=== PATIENT | male | born 1975 | race Caucasian/White ===

== ENCOUNTER 2019-03-14 21:48 | Inpatient (IN) | payer BC ==
[2019-03-14] MEDS ORDERED: Ondansetron ODT 4 MG TAB PO PRN (23:01)
--- NOTE | 2019-03-14 23:39 | PDOC.EVN ---
Event Note - Event Note Event Note: [id number] HP
[2019-03-15 00:41] VITALS: BMI 48.7
[2019-03-15] MEDS ORDERED: PROMETHAZINE DM PO PRN (04:20)
[2019-03-15] MEDS ORDERED: Phenergan/Codeine 10-6.25mg/5ml UDCUP PO PRN (04:37)
[2019-03-15 05:14] LABS: #Eosinphils 0.3 thou/uL (0.0-0.7); #Lymphocytes 1.9 thou/uL (1.20-3.40); #Neutrophils 9.3 thou/uL (1.40-6.50); %Basophils 0.3 % (0.0-1.0); %Eosinophils 2.2 % (0.0-10.0); %Lymphocytes 15.3 % (21.0-51.0); %Monocytes 8.3 % (0.0-10.0); %Neutrophils 73.9 % (42.0-75.0); Hemoglobin 9.8 g/dL (14.0-18.0); Mean Corpuscular HGB CONC 31.6 g/dL (32.0-36.0); Mean Corpuscular Hemoglobin 25.2 pg (27.0-31.0); Mean Corpuscular Volume 79.8 fL (78.0-98.0); Mean Platelet Volume 7.5 fL (7.4-10.4); Platelet Count 665 thou/uL (130-400); RBC Distribution Width 14.4 % (11.5-14.5); Red Blood Cell (RBC) Count 3.89 mill/uL (4.70-6.10); White Blood Cell (WBC) Count 12.5 thou/uL (4.8-10.8)
[2019-03-15 05:36] LABS: ALT (SGPT) 30 U/L (8-55); AST (SGOT) 57 U/L (5-34); Albumin 3.2 g/dL (3.5-5.0); Alkaline Phosphatase 167 U/L (40-110); Anion Gap 17 mmol/L (10-20); BUN (Urea Nitrogen) 27 mg/dL (8.9-20.6); Bilirubin, Total 0.5 mg/dL (0.2-1.2); Calc. Creatinine Clearance 208 mL/min (70-130); Calcium 9.3 mg/dL (7.8-10.44); Carbon Dioxide 21 mmol/L (22-29); Chloride 105 mmol/L (98-107); Estimated GFR-MDRD 82; Globulin 3.2 g/dL (2.4-3.5); Glucose 113 mg/dL (70-105); Potassium 3.8 mmol/L (3.5-5.1); Protein, Total 6.4 g/dL (6.0-8.3); Sodium 139 mmol/L (136-145)
[2019-03-15 07:31] LABS: INR-International Normal Ratio 1.2; PTT 30.1 SEC (22.9-36.1); Prothrombin Time 14.7 SEC (12.0-14.7)
[2019-03-15] MEDS ORDERED: Sodium Bicarbonate 2.5 MEQ/5 ML VIAL ONE (08:08)
--- NOTE | 2019-03-15 08:09 | HP ---
CHIEF COMPLAINT: Abdominal distension and shortness of breath. HISTORY OF PRESENT ILLNESS: Mr. Fung is a 43-year-old male with past medical history of ?hyperlipidemia, presented to [facility] Emergency Room and in [place], [place] with abdominal distention and shortness of breath for the last 2 weeks. Workup in the emergency room including imaging studies. The patient was found to have massive ascites, liver mass with carcinomatosis, portal vein thrombosis. Requested to transfer the patient to [facility] for GI consultation, accepted the transfer. The patient denies fevers, chills, vomiting. The patient denies any significant past medical history. No history of hepatitis. He used to drink in the past socially. The patient is being admitted to hospital for further management. PAST MEDICAL HISTORY: 1. Hyperlipidemia. 2. Cellulitis. PAST SURGICAL HISTORY: Four eye surgeries and four ear surgeries. FAMILY HISTORY: Reviewed and noncontributory. SOCIAL HISTORY: Denies smoking. Drinks alcohol socially. HOME MEDICATIONS: Please see home medication reconciliation form for updated medications. ALLERGIES: NO KNOWN ALLERGIES. REVIEW OF SYSTEMS: Review of 14 systems negative except what is mentioned in history of present illness. PHYSICAL EXAMINATION: GENERAL: The patient is awake, alert, in moderate distress. HEAD AND NECK: Normocephalic, atraumatic. Neck is supple. No JVD. CHEST: Fair bilateral air entry. HEART: S1, S2. Regular. Tachycardic. ABDOMEN: Markedly distended with shifting dullness and fluid thrill. NEUROLOGIC: Awake, alert, oriented x3. PSYCH: Normal mood. EXTREMITIES: Positive for edema. No clubbing or cyanosis. DIAGNOSTIC STUDIES: LABORATORY RESULTS: AST 63, ALT 30. INR is 1.1. Sodium is 141. IMAGING STUDIES: As mentioned above in the history of present illness. ASSESSMENT: 1. Ascites, massive. 2. Liver mass. 3. Carcinomatosis. 4. Portal vein thrombosis. PLAN: 1. Admit. 2. GI consulted for evaluation and further management. 3. Consult Interventional Radiology for ultrasound-guided paracentesis. 4. Reconcile home medications. 5. Deep venous thrombosis prophylaxis. SCD/early ambulation. 6. Expected length of stay, 2 midnights or more. Job ID: [id number]
[2019-03-15] MEDS ORDERED: FLU VACC QS2019-20(6MOS UP)/PF 60 MCG/0.5 ML SYRINGE IM ONE (09:00)
[2019-03-15] MEDS: Famotidine 20 MG TAB PO SCH ×2 (10:11→22:12)
[2019-03-15 11:35] LABS: CEA, Serum 105.58 ng/mL (< or = 5.0)
[2019-03-15 11:49] LABS: HBCM Index 0.06 S/CO (0-0.79); HBSAg Index 0.16 S/CO (0-0.99); Hep A IgM AB Non-Reactive (NonReactive); Hep A IgM S/CO 0.08 S/CO (0-0.79); Hep B Surf Ag Non-Reactive S/CO (NonReactive); Hep C IgG Ab Non-Reactive (NonReactive); Hep C Index 0.05 S/CO (0-0.79); Hepatitis B Core IgM Abs Non-Reactive (NonReactive)
--- NOTE | 2019-03-15 13:32 | ULT ---
PROCEDURE: ULTRASOUND GUIDED ABDOMINAL PARACENTESIS: INDICATION: History of hepatic mass. Ascites. Therapeutic and diagnostic paracentesis requested. FINDINGS: Five liters of dark ascitic fluid removed from the right lower quadrant. Postprocedure studies showe d moderate residual volume ascites. Since this is the patient's first paracentesis, the removal was terminated at 5 liters. PROCEDURE NOTE: Four-quadrant ultrasound shows large volume ascites. The right lower quadrant is chosen for puncture . The skin is prepped and draped in a sterile manner. Local anesthesia was administered with Lidoca ine. A tiny sandy was made in the skin with scalpel. A 5 Portuguese BCNX catheter with needle in placed was advanced into the ascites in the right lower quadrant under ultrasound guidance. The needle is r emoved as the catheter is advanced. The catheter is attached to suction drainage. Five liters of da rk ascitic fluid removed. There were no problems or complications. POS: FRANTZ
[2019-03-15 13:48] LABS: RBC Count-Automated (BF) 32539 /cumm; WBC/Nucleated-Auto (BF) 938 uL
[2019-03-15 13:50] LABS: BF Color Red; Body Fluid Source Paracentesis Fluid; Clarity Cloudy/Turbid (Clear); Tube # EDTA
[2019-03-15 14:20] LABS: BF Segmented Neutrophils 2 %; Cell Count Non Hematic 51 %; Lymphocytes 47 %
--- NOTE | 2019-03-15 16:16 | PDOC.HOSPP ---
- Subjective Encounter Date: 03/15/19 Encounter Time: 11:00 Subjective: had paracentesis this am breathing is better now no abd pain, says his tense abd before is better now - Objective Vital Signs & Weight: Vital Signs (12 hours) Temp Pulse Resp BP BP Pulse Ox 03/15/19 15:06 116 H 03/15/19 14:53 98.1 F 125 H 18 111/59 L 94 L 03/15/19 12:00 95 03/15/19 11:06 98.4 F 116 H 18 125/88 95 03/15/19 07:45 93 L 03/15/19 07:35 98.1 F 107 H 22 H 105/73 93 L Weight Weight 340 lb I&O: 03/14/19 03/15/19 03/16/19 06:59 06:59 06:59 Intake Total 100 Balance 100 Result Diagrams: 03/15/19 04:33 03/15/19 04:33 Hospitalist ROS - Medication Medications: Active Medications Generic Name Dose Route Start Last Admin Trade Name Freq PRN Reason Stop Dose Admin Famotidine 20 mg 03/15/19 09:00 03/15/19 10:11 Pepcid PO 20 mg BID MORTEZA Administration - Exam General Appearance: awake alert, ill appearing Eye: PERRL, anicteric sclera ENT: no oropharyngeal lesions, moist mucosa Neck: supple, no JVD Heart: RRR, no murmur Respiratory: no wheezes, no rales Gastrointestinal: soft, normal bowel sounds, no guarding, no rigidity, distended Extremities: no cyanosis, 1+ LE edema Neurological: cranial nerve grossly intact, no focal deficits Psychiatric: normal affect, A&O x 3 Hosp A/P (1) Ascites Code(s): R18.8 - OTHER ASCITES Status: Acute Qualifiers: Ascites type: malignant Qualified Code(s): R18.0 - Malignant ascites (2) Liver mass Code(s): R16.0 - HEPATOMEGALY, NOT ELSEWHERE CLASSIFIED Status: Acute (3) Chronic anemia Code(s): D64.9 - ANEMIA, UNSPECIFIED Status: Chronic (4) Portal vein thrombosis Code(s): I81 - PORTAL VEIN THROMBOSIS Status: Acute (5) Liver metastases Code(s): C78.7 - SECONDARY MALIG NEOPLASM OF LIVER AND INTRAHEPATIC BILE DUCT Status: Suspected (6) Morbid obesity with BMI of 45.0-49.9, adult Code(s): E66.01 - MORBID (SEVERE) OBESITY DUE TO EXCESS CALORIES; Z68.42 - BODY MASS INDEX (BMI) 45.0-49.9, ADULT Status: Chronic - Plan await cytology on ascitic fluid for egd/colonoscopy in am father has h/o pancreatic ca and mother has breast ca?, both are being treated at [facility] per sister at bedside has evaluated patient this am still has lot of ascites left in him prognosis guarded pt is single, no children
[2019-03-15] MEDS ORDERED: GoLYTELY 4,000 ml Bottle PO SCH (16:45)
--- NOTE | 2019-03-15 18:53 | CON ---
DATE OF CONSULTATION: 03/15/2019 REASON FOR CONSULTATION: Abnormal GI imaging showing a liver mass, acute onset ascites with possible peritoneal carcinomatosis. 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 He states that he was in his usual state of health until approximately 3 to 4 weeks ago when he began to have increased chronic cough that would occur daily and persist for the greater portion of the day. He was subsequently seen by his primary care physician and placed on antibiotic regimen for an upper respiratory infection including doxycycline for the next 10 days. At the completion of the antibiotic therapy, he started to notice that his abdomen began to be getting more distended and progressively worsened over the next 3 weeks. With the increase in his abdominal distention, it prompted him to seek healthcare assistance in the [facility], and there, he was diagnosed with significant new onset ascites and transferred to [facility] for further evaluation. In addition to the coughing and abdominal distention, he states that he has had increased generalized fatigue, subjective fevers, and night sweats over the last 3 to 4 weeks, although the night sweats and fever have improved significantly over the last 1 to 2 weeks. He currently denies any nausea, vomiting, fevers, chills, melena, hematochezia, hematemesis, dysphagia, odynophagia, lower extremity edema, or encephalopathy. He has never had an upper endoscopy or colonoscopy in the past. The patient was also adopted, so family history is unavailable. Of note, the patient underwent paracentesis earlier today with results pending at this time. The patient also noted a slight change in his bowel habits, where he was having approximately 1 solid bowel movement every 1 to 2 days that has increased in frequency, now having 1 solid bowel movement every day with no difficulty with defecation. REVIEW OF SYSTEMS: A 10-category review of systems was obtained with all responses negative except for the pertinent positives as listed in HPI. PAST MEDICAL HISTORY: As per HPI. PAST SURGICAL HISTORY: Multiple eye surgeries, multiple ear surgeries. FAMILY HISTORY: The patient was adopted, so the family history is unknown. SOCIAL HISTORY: Denies any tobacco or illicit drug use. Drinks approximately 2 to 3 drinks every 1 to 2 weeks. OUTPATIENT MEDICATIONS: Reviewed. ALLERGIES: NO KNOWN DRUG ALLERGIES. PHYSICAL EXAMINATION: VITAL SIGNS: Temperature 98.1, pulse 116, blood pressure 111/59, respiratory rate 18, saturating 94% on room air. GENERAL: The patient was initially lying on his side in bed, in no acute distress. Alert and oriented x4. HEENT: Normocephalic and atraumatic. NECK: Supple. No JVD or scleral icterus noted. CARDIOVASCULAR: Tachycardic rate but regular rhythm. No discernible murmurs, gallops, or rubs. RESPIRATORY: Clear to auscultation bilaterally with no discernible wheezes or rales, although somewhat diminished breath sounds in the bilateral lower lung bases. ABDOMEN: Normoactive bowel sounds. Soft, nontender to palpation, but significant abdominal distention that was not tense to palpation. EXTREMITIES: Trace to 1+ bilateral lower extremity edema extending to mid smith. No cyanosis or clubbing noted. LABORATORY DATA: CBC with a white blood cell count of 12.5, hemoglobin 9.8, hematocrit 31.1, platelets 665. INR 1.2. Chemistry with a sodium of 139, potassium 3.8, chloride 105, CO2 of 21, BUN 27, creatinine 1, glucose 113, AST 57, ALT 30, alkaline phosphatase 167, total bilirubin 0.5, albumin 3.2. IMAGING DATA: Per chart review, there was mention of a CT of the abdomen and pelvis that was obtained in the [facility]. It mentions the presence of a liver mass (no mention on size or location) and possible peritoneal carcinomatosis. There was also mention of a possible portal vein thrombosis as well. 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 Abnormal gastrointestinal imaging. The patient is presenting with acute onset of progressively worsening ascites that has been present for the last 3 to 4 weeks characterized as significant abdominal distention with obtaining approximately 5 L of fluid on paracentesis earlier today. On evaluation in the [facility] ER, he was noted to have a CT scan that showed a liver mass (unknown size and location) in addition to what appeared to be peritoneal carcinomatosis. At this time, it is unclear where this primary malignancy may be to contribute to the current imaging findings, and given his lack of family history (the patient was adopted), it is unclear what his risk stratification for gastrointestinal malignancies is as well. Current differential could include esophageal cancer, gastric cancer, colonic malignancy (more likely), carcinoid (although I would like to see carcinoid syndrome with liver metastasis), de mario hepatocellular carcinoma, cholangiocarcinoma, or possible lymphoma/leukemia. RECOMMENDATIONS: 1. Would place the patient on a clear liquid diet and n.p.o. at midnight in preparation for upper and lower endoscopy tomorrow. 2. Would proceed with both EGD and colonoscopy tomorrow for intraluminal evaluation and possible evaluation of a primary GI malignancy. 3. Would follow up on cytology from the ascitic fluid obtained today. 4. Would also follow up on the fluid analysis as it may further localize where the ascites coming from. 5. Would attempt to obtain the read/records from the CT scan obtained in [facility]. New onset ascites. The patient is presenting with a history of new onset ascites that has been progressively worsening over the last 3 to 4 weeks. On admission to the [facility] ER, he was noted to have a significant amount ascites with in addition to a liver mass and possible peritoneal carcinomatosis. At this time, the origin of his ascites could be multifold including possible liver etiology with portal vein thrombosis, peritoneal carcinomatosis with fluid leak from metastatic disease, possible renal or cardiac etiologies (less likely). RECOMMENDATIONS: 1. I will follow up on the paracentesis results for further evaluation and possible localization based on those labs. 2. The patient will probably need repeat paracentesis during the course of this hospitalization. 3. Could consider placing the patient on diuretic management, but would hold off for now until results of the paracentesis are known. 4. Would place the patient on a low-sodium diet during this hospitalization for worsening ascites and lower extremity edema. 5. We will continue to follow. Please call with any questions. Job ID: [id number]
[2019-03-16] MEDS: Famotidine 20 MG TAB PO SCH ×2 (10:26→20:32)
[2019-03-16] MEDS ORDERED: Ketamine 50 MG/ML (10ML VIAL) ONE (11:01)
[2019-03-16] MEDS ORDERED: Promethazine HCl 25 MG/ML VIAL IM PRN (12:14)
[2019-03-16] MEDS ORDERED: Ondansetron HCl/PF 4 MG/2 ML Vial IVP PRN (12:14)
[2019-03-16] MEDS ORDERED: Promethazine HCl 25 MG/ML VIAL SLOW IVP PRN (12:14)
--- NOTE | 2019-03-16 13:17 | PDOC.HOSPP ---
- Subjective Encounter Date: 03/16/19 Encounter Time: 09:00 Subjective: no abd pain now drank all of golytely for colonoscopy today, says has clear bm's now - Objective Vital Signs & Weight: Vital Signs (12 hours) Temp Pulse Resp BP Pulse Ox 03/16/19 08:50 97 03/16/19 07:38 97.7 F 98 18 106/72 97 03/16/19 04:12 98.4 F 94 18 106/69 97 Weight Weight 340 lb I&O: 03/15/19 03/16/19 03/17/19 06:59 06:59 06:59 Intake Total 100 Balance 100 Result Diagrams: 03/15/19 04:33 03/15/19 04:33 Hospitalist ROS - Medication Medications: Active Medications Generic Name Dose Route Start Last Admin Trade Name Freq PRN Reason Stop Dose Admin Famotidine 20 mg 03/15/19 09:00 03/16/19 10:26 Pepcid PO Not Given BID MORTEZA - Exam General Appearance: NAD, awake alert Eye: PERRL, anicteric sclera ENT: no oropharyngeal lesions, moist mucosa Neck: supple, no JVD Heart: RRR, no murmur Respiratory: no wheezes, no rales Gastrointestinal: soft, normal bowel sounds, distended Gastrointestinal - other findings: ascites+++ Extremities: no clubbing, 1+ LE edema Neurological: cranial nerve grossly intact, no focal deficits Psychiatric: normal affect, A&O x 3 Hosp A/P (1) Ascites Code(s): R18.8 - OTHER ASCITES Status: Acute Qualifiers: Ascites type: malignant Qualified Code(s): R18.0 - Malignant ascites (2) Liver mass Code(s): R16.0 - HEPATOMEGALY, NOT ELSEWHERE CLASSIFIED Status: Acute (3) Chronic anemia Code(s): D64.9 - ANEMIA, UNSPECIFIED Status: Chronic (4) Portal vein thrombosis Code(s): I81 - PORTAL VEIN THROMBOSIS Status: Acute (5) Liver metastases Code(s): C78.7 - SECONDARY MALIG NEOPLASM OF LIVER AND INTRAHEPATIC BILE DUCT Status: Suspected (6) Morbid obesity with BMI of 45.0-49.9, adult Code(s): E66.01 - MORBID (SEVERE) OBESITY DUE TO EXCESS CALORIES; Z68.42 - BODY MASS INDEX (BMI) 45.0-49.9, ADULT Status: Chronic - Plan await cytology on ascitic fluid for egd/colonoscopy today still has lot of ascites left in him prognosis guarded pt is single, no children will have repeat paracentesis prior to dc for comfort
--- NOTE | 2019-03-16 15:15 | OP ---
DATE OF PROCEDURE: 03/16/2019 RESOURCE CONSERVATION MANAGER SURGEON: None. PROCEDURES PERFORMED: 1. Esophagogastroduodenoscopy, diagnostic. 2. Colonoscopy with biopsies. INDICATION: 1. Peritoneal carcinomatosis, unknown primary source. 2. Multiple liver masses, unknown primary. MEDICATIONS: See Anesthesia record. FINDINGS: After discussion of the risks, benefits, and alternatives of the procedure, informed consent was obtained and witnessed. Pre-endoscopic cardiopulmonary examination was satisfactory. Time-out was performed before sedation was achieved. Sedation was achieved with Anesthesia assistance in the endoscopy unit. A Pentax adult upper endoscope was placed into the oropharynx and passed through the cricopharyngeus under direct visualization. The esophageal mucosa appeared normal throughout with a normal-appearing Z-line. There was no evidence of any esophageal varices. The endoscope was advanced into the stomach. Forward and retroflexed views of the entire gastric mucosa were obtained. The gastric mucosa appeared normal throughout. There was no evidence of any gastric varices. The endoscope was passed beyond the pylorus and into the first and second portions of the duodenum, which appeared normal. The upper endoscope was completely withdrawn and the patient was repositioned. Digital rectal exam was performed, which demonstrated external hemorrhoids. A Pentax adult colonoscope was inserted into the anus and passed forward in the usual fashion. In the right colon, there is a very large circumferential fungating ulcerated mass essentially filling up the entire right colon. The mass is quite long and is narrower at the proximal, so I was unable to advance beyond it to reach the cecum, but I do estimate that the mass involves the ascending colon as well as the cecum. There is extensive friability and ulceration and complex nodularity throughout this mass and it is very likely malignant. Multiple biopsies were obtained from the mass for histology. The colonoscope was then slowly withdrawn in a gradual and circumferential manner with careful examination of the entire remaining colonic mucosa. The quality of the prep was adequate. There was a smaller polyp measuring about 4 mm at 70 cm from the anal verge, but this was not removed on today's exam. The remainder of the colonic mucosa appeared normal. Retroflexion in the rectum demonstrates internal hemorrhoids. The colonoscope was completely withdrawn and the patient allowed to recover. The patient tolerated the procedure well. There were no immediate postprocedure complications. IMPRESSION: 1. Normal esophagogastroduodenoscopy. 2. Large circumferential near-obstructing mass essentially filling the right colon, likely malignant. Ulcerated and friable. Multiple biopsies obtained for histology. 3. Small colon polyp at 70 cm, not removed on today's exam. 4. Internal and external hemorrhoids. RECOMMENDATIONS: 1. Follow up pathology results on the right colon mass biopsies. 2. Oncology consultation. 3. Low-fiber low-residue diet. 4. Supportive care. Please call back if needed. Job ID: [id number]
[2019-03-17] MEDS: Famotidine 20 MG TAB PO SCH ×2 (08:49→20:39)
[2019-03-17] MEDS ORDERED: Sodium Bicarbonate 2.5 MEQ/5 ML VIAL ONE (14:06)
[2019-03-17] MEDS: Albumin 25% 25 GM/100 ML BOT IVPB SCH ×2 (15:35→20:39)
--- NOTE | 2019-03-17 16:10 | PDOC.HOSPP ---
- Subjective Encounter Date: 03/17/19 Encounter Time: 09:00 Subjective: no sob, wants some more fluid removed from his abdomen brother at bedside - Objective Vital Signs & Weight: Vital Signs (12 hours) Temp Pulse Resp BP BP Pulse Ox 03/17/19 15:26 98.0 F 97 18 110/76 97 03/17/19 12:10 98.3 F 97 16 111/79 96 03/17/19 08:45 97 03/17/19 07:45 98.5 F 95 14 106/71 97 03/17/19 04:10 97.8 F 101 H 16 105/69 94 L Weight Weight 340 lb I&O: 03/16/19 03/17/19 03/18/19 06:59 06:59 06:59 Intake Total 100 720 Balance 100 720 Result Diagrams: 03/15/19 04:33 03/15/19 04:33 Hospitalist ROS - Medication Medications: Active Medications Generic Name Dose Route Start Last Admin Trade Name Freq PRN Reason Stop Dose Admin Famotidine 20 mg 03/15/19 09:00 03/17/19 08:49 Pepcid PO 20 mg BID MORTEZA Administration - Exam General Appearance: awake alert, ill appearing Eye: PERRL, anicteric sclera ENT: no oropharyngeal lesions, moist mucosa Neck: supple, no JVD Heart: RRR, no murmur Respiratory: no wheezes, no rales Gastrointestinal: soft, normal bowel sounds, distended Gastrointestinal - other findings: massive ascites+++ Extremities: no cyanosis, no edema Neurological: cranial nerve grossly intact, no focal deficits Psychiatric: normal affect, A&O x 3 Hosp A/P (1) Adenocarcinoma of colon metastatic to liver Code(s): C18.9 - MALIGNANT NEOPLASM OF COLON, UNSPECIFIED; C78.7 - SECONDARY MALIG NEOPLASM OF LIVER AND INTRAHEPATIC BILE DUCT Status: Acute (2) Ascites Code(s): R18.8 - OTHER ASCITES Status: Acute Qualifiers: Ascites type: malignant Qualified Code(s): R18.0 - Malignant ascites (3) Chronic anemia Code(s): D64.9 - ANEMIA, UNSPECIFIED Status: Chronic (4) Portal vein thrombosis Code(s): I81 - PORTAL VEIN THROMBOSIS Status: Acute (5) Liver metastases Code(s): C78.7 - SECONDARY MALIG NEOPLASM OF LIVER AND INTRAHEPATIC BILE DUCT Status: Acute (6) Morbid obesity with BMI of 45.0-49.9, adult Code(s): E66.01 - MORBID (SEVERE) OBESITY DUE TO EXCESS CALORIES; Z68.42 - BODY MASS INDEX (BMI) 45.0-49.9, ADULT Status: Chronic - Plan cytology on ascitic fluid shows adenocarcinoma colon right colon biopsy confirms above 2nd paracentesis today for comfort, alb infusions for pressure support. prognosis guarded pt is single, no children patient and brother confirm that they have a standby onc in [place] who is ready to see them as soon as he is dc'd from here dc plan in am after 4 doses of alb infusion
[2019-03-18] MEDS ORDERED: Acetaminophen 325 MG TAB PO PRN (00:21)
[2019-03-18] MEDS: Albumin 25% 25 GM/100 ML BOT IVPB SCH ×2 (03:46→08:54)
--- NOTE | 2019-03-18 08:08 | ULT ---
PROCEDURE: ULTRASOUND GUIDED ABDOMINAL PARACENTESIS: INDICATION: Recurrent ascites. Cirrhosis. FINDINGS: 5100 cc of dark bloody-tinged ascitic fluid removed from the right lower quadrant. Post procedure ul trasound showed moderate volume residual ascites. TECHNIQUE: A 4-quadrant ultrasound showed large volume ascites. Right lower quadrant was chosen for puncture. The overlying skin was prepped and draped in a sterile manner. Local anesthesia was administered wit h Lidocaine. A tiny skin sandy was made with a scalpel. A 5 Tajik SaleStream catheter with needle in plac e was introduced through the slit through the right lower quadrant under ultrasound guidance. The ca theter was attached to suction drainage. 5100 cc of dark blood-tinged fluid removed. There were no problems or complications. POS: OFF
[2019-03-18] MEDS: Famotidine 20 MG TAB PO SCH (08:54)
[2019-03-18 11:40] VITALS: BP 90/61; TEMP 97.4
--- NOTE | 2019-03-18 20:03 | DIS ---
DATE OF ADMISSION: 03/14/2019 DATE OF DISCHARGE: 03/18/2019 DISCHARGE DISPOSITION: Home. PRIMARY DISCHARGE DIAGNOSES: 1. Adenocarcinoma of colon with multiple metastases including peritoneum and liver, status post paracentesis x2. 2. Anemia, likely due to colon cancer. 3. Portal vein thrombosis. 4. Morbid obesity. PROCEDURES DONE DURING HOSPITALIZATION: The patient has had initial paracentesis on admission with removal of 5 L of dark ascitic fluid. Histopathology of ascitic fluid revealed metastatic adenocarcinoma suggestive of gastrointestinal origin. The tumor cell clusters were diffusely positive for MOC-31, , and CDX2. They were also negative for calretinin, podoplanin, and TTF-1. He has had upper endoscopy and colonoscopy done on 03/16/[address] Adiel Alex. Upper endoscopy was normal. There was a large circumferential near obstructing mass essentially filling the right colon, likely malignant. It was ulcerated and friable. Multiple biopsies were obtained. There was a small colon polyp at 70 cm, which was not removed on the current exam. There were internal and external hemorrhoids seen. Histopathology of the right colon mass showed adenocarcinoma with mucinous and signet ring cell features. [place] [facility] testing showed no loss of expression with 90% intensity, moderate for MLH1, MSH2, MSH6, and PMS2. The final interpretation of this genomic study was MLH2, MSH2, MSH6, and PMS2, were all expressed by immunohistochemistry. There was no evidence of mismatch repair deficiency on the specimen that was sent for genomics. He has had a 2nd paracentesis done on 03/17/2019 with removal of 5100 mL of dark blood-tinged fluid by Interventional Radiology. DISCHARGE MEDICATION: Ferrous sulfate 325 mg p.o. daily. INPATIENT CONSULT: Dr. Emil Dorado/Dr. Adiel Alex for Gastroenterology. DISCHARGE PLAN: The patient will follow up at [facility] per family's wishes. BRIEF COURSE DURING HOSPITALIZATION: The patient initially got admitted on the with complaints of progressive abdominal distention and shortness of breath. He had gone to [facility] in [place], where initial CAT scans were done, which revealed peritoneal carcinomatosis with portal vein thrombosis and liver met along with massive ascites. Please note, this was done at [facility] ER. On arrival here, the patient has had paracentesis done with removal of 5 L of fluid. This cytology on the fluid came back positive for adenocarcinoma of gastrointestinal origin. He has had GI consultation with Dr. Emil Dorado. He was scheduled for EGD, colonoscopy where he was found to have had near obstructive mass in the right colon. This was biopsied, which has come back positive for adenocarcinoma. Detailed description of the histopathology and genomic studies is dictated above. The patient and family would like to follow up at [facility]. They have a prior relationship with the oncologist there, where both his parents were treated for cancer. In view of this, no oncology consultation was requested here. He will be shortly discharged home. A total of 10 L of ascitic fluid was removed, and the patient is comfortable breathing and ambulating at present. Please note, I have seen and examined the patient on the day of discharge. Job ID: [id number]
== END 2019-03-18 14:07 | disposition home or self-care (01) | DRG 374 ==
LOC: ERS 21:48 → SURG B 22:36
PROVIDERS: ADMIT Internal Medicine; ATTEND Internal Medicine
PROC: 0W9G3ZZ Drainage of Peritoneal Cavity, Percutaneous Approach (ICD-10-PCS; principal; 2019-03-15)
PROC: 0DJ08ZZ Inspection of Upper Intestinal Tract, Via Natural or Artificial Opening Endoscopic (ICD-10-PCS; 2019-03-16)
PROC: 0DBH8ZX Excision of Cecum, Via Natural or Artificial Opening Endoscopic, Diagnostic (ICD-10-PCS; 2019-03-16)
PROC: 0W9G30Z Drainage of Peritoneal Cavity with Drainage Device, Percutaneous Approach (ICD-10-PCS; 2019-03-18)
DX: C18.9 Malignant neoplasm of colon, unspecified (principal); I81 Portal vein thrombosis; R18.0 Malignant ascites; C78.7 Secondary malignant neoplasm of liver and intrahepatic bile duct; Z68.42 Body mass index [BMI] 45.0-49.9, adult; C78.6 Secondary malignant neoplasm of retroperitoneum and peritoneum; E66.01 Morbid (severe) obesity due to excess calories; D63.0 Anemia in neoplastic disease; E78.5 Hyperlipidemia, unspecified; K64.4 Residual hemorrhoidal skin tags; K64.8 Other hemorrhoids; K63.5 Polyp of colon; K74.60 Unspecified cirrhosis of liver; Z98.890 Other specified postprocedural states
CPT/HCPCS: 36415; 49083; 80053; 80074; 82042; 82105; 82378; 83615; 84157; 85025; 85060; 85610; 85730; 87070; 87205; 88112; 88305; 88341; 88342; 89051; P9047

== ENCOUNTER 2019-03-23 12:49 | Observation (INO) | payer BC ==
[~2019-03-23 12:49] MED LIST: ISOVUE-370 76%-LOCM 1 ML ONE
[2019-03-23 14:39] LABS: #Basophils 0.1 thou/uL (0.0-0.2); #Eosinphils 0.2 thou/uL (0.0-0.7); #Lymphocytes 1.7 thou/uL (1.20-3.40); #Monocytes 1.5 thou/uL (0.11-0.59); #Neutrophils 13.2 thou/uL (1.40-6.50); %Basophils 0.4 % (0.0-1.0); %Neutrophils 79.6 % (42.0-75.0); Mean Corpuscular HGB CONC 30.6 g/dL (32.0-36.0); Mean Corpuscular Hemoglobin 25.3 pg (27.0-31.0); Mean Corpuscular Volume 82.7 fL (78.0-98.0); Mean Platelet Volume 7.4 fL (7.4-10.4); Platelet Count 825 thou/uL (130-400); RBC Distribution Width 14.6 % (11.5-14.5); Red Blood Cell (RBC) Count 4.33 mill/uL (4.70-6.10); White Blood Cell (WBC) Count 16.6 thou/uL (4.8-10.8)
[2019-03-23 14:46] LABS: INR-International Normal Ratio 1.1; PTT 32.5 SEC (22.9-36.1)
[2019-03-23 15:01] LABS: ALT (SGPT) 32 U/L (8-55); AST (SGOT) 75 U/L (5-34); Albumin 3.4 g/dL (3.5-5.0); Alkaline Phosphatase 294 U/L (40-110); Anion Gap 19 mmol/L (10-20); BUN (Urea Nitrogen) 26 mg/dL (8.9-20.6); Bilirubin, Total 0.6 mg/dL (0.2-1.2); CK (CPK) 43 U/L (30-200); Calc. Creatinine Clearance 0 mL/min (70-130); Calcium 9.2 mg/dL (7.8-10.44); Carbon Dioxide 23 mmol/L (22-29); Chloride 97 mmol/L (98-107); Estimated GFR-MDRD 62; Globulin 3.5 g/dL (2.4-3.5); Glucose 131 mg/dL (70-105); Lipase 44 U/L (8-78); Potassium 4.8 mmol/L (3.5-5.1); Protein, Total 6.9 g/dL (6.0-8.3); Sodium 134 mmol/L (136-145)
[2019-03-23 16:01] LABS: Bilirubin Moderate (Negative); Blood, Urine Negative (Negative); Glucose, Urine (Dipstick) Negative (Negative); Leukocyte Negative (Negative); Nitrite Negative (Negative); Protein, Urine (Dipstick) 30 mg/dL (Neg-Trace); Urobilinogen 0.2 mg/dL (Less than 2)
[2019-03-23 16:07] LABS: Clarity Clear (Clear)
[2019-03-23 16:10] LABS: RBC/HPF 0-3 HPF (0-3); Squamous Epithelial 0-3 HPF (0-3)
--- NOTE | 2019-03-23 16:23 | RAD ---
EXAM: Chest PA and lateral: HISTORY: Ascites COMPARISON: 04/19/2004 FINDINGS: Linear stranding in both lung bases suggest mild atelectasis. No evidence of effusion or infiltrate. Heart and mediastinum unremarkable. Vasculature normal. Heart and mediastinum appear unremarkable. Osseous structures are unremarkable. IMPRESSION: Evidence of mild basilar atelectasis. Chest otherwise unremarkable.
[2019-03-23 16:24] LABS: Bacteria/HPF None Seen HPF (None Seen)
--- NOTE | 2019-03-23 16:41 | CT ---
CT abdomen and pelvis with IV contrast. Oral contrast was not administered. INDICATIONS: Abdominal pain. Worsening ascites. Recent diagnosis of colon cancer. COMPARISON: None FINDINGS: Lung bases are clear There is a 10 cm diameter area of abnormal low attenuation in the mid right lobe liver consistent wit h metastatic lesion. There are other smaller lesions seen throughout the liver. Spleen unremarkable. There is a 6 cm soft tissue mass in the mid abdomen which is located just anterior to the body of the pancreas. This mildly compresses the body the pancreas. It could potential arise from the pancreas but appears to produce mass effect on the body the pancreas as seen on sagittal view. Adenopathy is s uspected although pancreatic mass not excluded. Low-density mass in the jania hepatis is most consistent with confluent necrotic adenopathy measuring up to 7 cm AP dimension. Stomach and duodenum appear unremarkable. Adrenal glands appear normal. Kidneys appear unremarkable. Collecting structures and urinary bladder appear unremarkable. Small bowel loops are normal caliber and exhibit normal fold pattern. Appendix not identified. Colon is nondistended and poorly evaluated. There is suggestion of a masslik e density in the cecum but this cannot be adequately evaluated. Moderate to large volume ascites throughout abdomen and pelvis. Aorta is normal caliber. There is evidence of numerous lymph nodes in the right mesentery which are difficult to delineate. Pelvic structures appear unremarkable. Subcutaneous tissues, abdominal wall, and muscular structures appear unremarkable. Osseous structures appear unremarkable. IMPRESSION: 1. Low-density lesions in the liver consistent with metastasis. The largest measures up to 10 cm. 2. Moderate to large volume ascites 3. Mass density in the mid abdomen probably represents hepatogastric adenopathy. This does compress t he body of the pancreas. Jania hepatis adenopathy and mesenteric adenopathy in the right abdomen noted. 4. Colon is not well evaluated. Masslike density in the region of the cecum is poorly characterized. This measures 8 to 9 cm AP dimension.
[2019-03-23 22:07] VITALS: BMI 47.5
[2019-03-23] MEDS ORDERED: Ondansetron PF 4 MG/2 ML Vial IVP PRN ×2 (22:07→22:08)
[2019-03-23] MEDS ORDERED: Ondansetron ODT 4 MG TAB SL PRN (22:07)
[2019-03-23] MEDS ORDERED: Acetaminophen 325 MG TAB PO PRN ×2 (22:07→22:08)
[2019-03-23] MEDS ORDERED: Acetaminophen 650 MG Suppository PR PRN (22:08)
[2019-03-23] MEDS ORDERED: Ondansetron ODT 4 MG TAB PO PRN (22:08)
--- NOTE | 2019-03-24 01:48 | HP ---
PRIMARY CARE PHYSICIAN: Silvia Haq MD CHIEF COMPLAINT: Increasing abdominal girth and shortness of breath. HISTORY OF PRESENT ILLNESS: Mr. Fung is a 43-year-old gentleman with a recent diagnosis of metastatic colon cancer, who was recently hospitalized on March 14, 2019 until March 18, 2019, during which he underwent investigations that found a large near obstructing mass involving the right colon. He had presented with ascites and underwent paracentesis with removal of 5 L of dark ascitic fluid. The patient was found to have multiple metastases involving the peritoneum and liver. He underwent a 2nd paracentesis on 03/17/2019, with removal of 5 L at that time as well. The patient returns due to recurring ascites. He has gained approximately 5 pounds in the last few days and has started to feel pressure in his abdomen and some slight shortness of breath with exertion. He states the discomfort is minimal, but he does feel his abdomen has become significantly distended, especially in the last couple of days. He has an appointment to be seen at [place] by Dr. Pfeiffer on 03/31/2019. REVIEW OF SYSTEMS: The patient states he has otherwise felt well and without any other complaints. Denies having any fevers, chills, or sweats. Denies having any nausea or vomiting. He continues to tolerate oral intake and has a good appetite, but does have to take small and frequent meals. Denies having any significant abdominal pain. He continues to move his bowels as normal. Denies having any blood per rectum or melenic stools. Denies any diarrhea or constipation. Has not had any urinary symptoms. Denies headaches or dizziness. All other review of systems are negative. PAST MEDICAL HISTORY: 1. Hyperlipidemia. 2. Cellulitis. 3. Obesity. 4. Newly diagnosed metastatic colon cancer. 5. Recurring ascites secondary to underlying malignancy. 6. Anemia due to cancer. 7. Portal vein thrombosis. PAST SURGICAL HISTORY: He has had 4 eye surgeries in the past and 4 ear surgeries. FAMILY HISTORY: His father was treated at [facility] for colon cancer. SOCIAL HISTORY: He denies any tobacco use. Reports drinking alcohol socially. Denies any drug use. ALLERGIES: NO KNOWN DRUG ALLERGIES. CURRENT MEDICATIONS: None. PHYSICAL EXAMINATION: GENERAL: The patient appears well developed, well nourished, is in no acute distress. VITAL SIGNS: Temperature 98.4, pulse 71, blood pressure 110/70, respirations 20, O2 saturation 94% on room air. HEENT: Normocephalic and atraumatic. Pupils are equal, round, and reactive to light. Sclerae icterus. Oropharynx is clear. NECK: Supple. LUNGS: Clear to auscultation bilaterally without any wheezes, rales, or rhonchi. CARDIAC: Regular rate and rhythm without audible murmurs, rubs, or gallops. ABDOMEN: Tense distention with no significant tenderness on palpation. No palpable masses. The patient with notably increased abdominal girth. EXTREMITIES: Trace edema. No calf tenderness. NEUROLOGIC: Alert and oriented x3. SKIN: Without rash or jaundice. LABORATORY DATA: Notable for white cell count of 16.6, hemoglobin 11, hematocrit 35.8, platelets 825, neutrophils 79.6. PT 14, INR 1.1, PTT 32.5. Sodium 134, potassium 4.8, anion gap 19, BUN 26, creatinine 1.27, GFR 62, glucose 131. LFTs notable for an AST of 75, otherwise unremarkable. Lipase normal at 44. Albumin 3.4, alkaline phosphatase 294. Urinalysis is notable for 30 of protein, 15 ketones, moderate bilirubin, negative for leukocyte esterase and nitrites. White blood cells more than 20, greater than 50 hyaline casts, otherwise unremarkable. No bacteria seen. IMAGING DATA: Chest x-ray done 03/23/2019. Showed evidence of mild basilar atelectasis, otherwise unremarkable. CT abdomen and pelvis done 03/23/2019, notable for low-density liver lesions consistent with known history of metastasis. Largest apparently measures up to 10 cm. He does have [id number] volume of ascites and mass density in the mid abdomen, felt to represent hepatogastric adenopathy that appears to be compressing the body of the pancreas. There was brock hepatis adenopathy and mesenteric adenopathy in the right abdomen. Masslike density noted in the region of the cecum measuring 8-9 cm in AP dimension. IMPRESSION AND PLAN: Mr. Fung is a very pleasant 43-year-old gentleman with a known family history of colon cancer, who himself has recently been diagnosed with metastatic colon cancer to the liver and peritoneum, scheduled to undergo initial evaluation at [facility] next 03/31/2019. He initially presented with ascites requiring paracentesis with a total removal of 10 L on 1 week ago. The patient now presents for management of the following. 1. Recurrent ascites. Associated with underlying malignancy. He has become symptomatic with increasing shortness of breath on exertion and when lying flat, mild discomfort without any severe pain at present. He has continued to accumulate fluid quickly and has gained 3 pounds in the last day. Consultation has placed to Gastroenterology with plans for patient to undergo paracentesis. We will place patient n.p.o. at midnight. 2. Leukocytosis. The patient with an elevated white count of 16. He is not on any medications and not on any steroids . He has no signs or symptoms of infection. Chest x-ray showed bibasilar atelectasis, otherwise unremarkable. We will obtain a UA and urine culture. Lactic acid added on to his labs. 3. Tachycardia. Possibly associated with underlying malignancy and slight clinical dehydration. The renal function appears overall stable with a creatinine of 1.27. His GFR is 62 compared to 82 last week. We will hold on any IV fluids. The patient is tolerating oral intake. 4. Gastrointestinal prophylaxis. We will initiate famotidine. 5. Deep venous thrombosis prophylaxis. None at this present time. The patient is ambulatory. 6. Code status full. His surrogate decision maker is his brother, Wagner Fung. The patient's case was discussed with Dr. Baltazar, who agrees with plan of care as described above. Job ID: [id number]
[2019-03-24 07:28] LABS: #Eosinphils 0.2 thou/uL (0.0-0.7); #Lymphocytes 1.5 thou/uL (1.20-3.40); #Monocytes 1.3 thou/uL (0.11-0.59); #Neutrophils 11.5 thou/uL (1.40-6.50); %Basophils 0.3 % (0.0-1.0); %Eosinophils 1.1 % (0.0-10.0); %Lymphocytes 10.6 % (21.0-51.0); %Monocytes 9.1 % (0.0-10.0); %Neutrophils 78.9 % (42.0-75.0); Hemoglobin 10.2 g/dL (14.0-18.0); Mean Corpuscular HGB CONC 30.9 g/dL (32.0-36.0); Mean Corpuscular Hemoglobin 25.2 pg (27.0-31.0); Mean Corpuscular Volume 81.7 fL (78.0-98.0); Mean Platelet Volume 7.4 fL (7.4-10.4); Platelet Count 779 thou/uL (130-400); RBC Distribution Width 14.5 % (11.5-14.5); Red Blood Cell (RBC) Count 4.03 mill/uL (4.70-6.10); White Blood Cell (WBC) Count 14.5 thou/uL (4.8-10.8)
[2019-03-24 07:53] LABS: Anion Gap 20 mmol/L (10-20); BUN (Urea Nitrogen) 18 mg/dL (8.9-20.6); Calc. Creatinine Clearance 173 mL/min (70-130); Calcium 9.1 mg/dL (7.8-10.44); Carbon Dioxide 22 mmol/L (22-29); Chloride 98 mmol/L (98-107); Estimated GFR-MDRD 67; Glucose 111 mg/dL (70-105); Potassium 5.2 mmol/L (3.5-5.1); Sodium 135 mmol/L (136-145)
[2019-03-24] MEDS ORDERED: Famotidine/PF 20 mg/2ml Vial SLOW IVP SCH (09:00)
[2019-03-24] MEDS ORDERED: Sodium Bicarbonate 2.5 MEQ/5 ML VIAL ONE (13:16)
--- NOTE | 2019-03-24 15:05 | ULT ---
Ultrasound-guided paracentesis: HISTORY: Symptomatic ascites FINDINGS: Informed consent obtained prior to the procedure. Preprocedural imaging demonstrated signif icant ascites throughout the abdomen and pelvis. Right lower quadrant prepped and draped in normal sterile fashion and anesthetized with 1% buffered lidocaine. With direct sonographic guidance, 5 Japanese Yueh catheter is advanced into the ascites and removal of the stylet yielded yellow fluid. 8 L were removed. The patient tolerated the procedure well. No postprocedural complications. IMPRESSION: Successful ultrasound-guided paracentesis yielding 8 L of yellow ascites.
[2019-03-24] MEDS: Albumin 25% 25 GM/100 ML BOT IVPB SCH ×2 (16:32→17:36)
[2019-03-24 17:43] VITALS: BP 125/66; TEMP 98
[2019-03-24] MEDS ORDERED: FLU VACC QS2019-20(6MOS UP)/PF 60 MCG/0.5 ML SYRINGE IM ONE (21:00)
--- NOTE | 2019-03-24 21:00 | CON ---
DATE OF CONSULTATION: 03/24/2019 REASON FOR CONSULTATION: Abdominal distention. HISTORY OF PRESENT ILLNESS: Mr. Fung is a 43-year-old man, who was recently diagnosed with metastatic colon cancer to the liver. He does not have any colonic obstruction, but is bothered by recurrent malignant ascites. He has had paracentesis with recent admission about 10 days ago, which showed adenocarcinoma on cytology. Since discharge, he has had slow recurrence of ascites causing abdominal distention. He has to sleep on his sides and does get somewhat short of breath. He denies having any severe localizing pain. There is no peripheral edema. The patient has an upcoming appointment at [facility] next week on 03/31/2019. The patient just had 8 L of fluid removed by paracentesis earlier this morning. Currently, he feels much better. PAST MEDICAL HISTORY: 1. Hyperlipidemia. 2. Obesity. 3. Newly diagnosed metastatic colon cancer to liver with malignant ascites. SOCIAL HISTORY: The patient has infrequent alcohol consumption. No tobacco usage. FAMILY HISTORY: Colon cancer in his father. ALLERGIES: NONE. MEDICATIONS: None. PHYSICAL EXAMINATION: VITAL SIGNS: Temperature is 98.0, blood pressure 125/66, pulse of 112. GENERAL: He is alert, in no distress. HEENT: Shows anicteric sclerae. Oropharynx clear. CARDIOVASCULAR: Shows normal S1 and S2. Regular rate and rhythm. CHEST: Shows breath sounds. ABDOMEN: Protuberant, but not taut. He has active bowel sounds. EXTREMITIES: Show trace pedal edema. LABORATORY DATA: WBCs 14.5, hemoglobin 10.2, platelet count of 779. Electrolytes within normal range. Creatinine 1.19. ASSESSMENT: 1. Recurrent malignant ascites causing shortness of breath, status post 8 L paracentesis with significant clinical improvement. 2. Newly diagnosed colon cancer with liver metastasis. RECOMMENDATION: 1. Nothing is planned or needed from GI standpoint at this point. 2. The patient has an outpatient paracentesis planned 2 days prior to his [facility] visit. 3. The patient can be discharged home from my standpoint. Job ID: [id number]
--- NOTE | 2019-03-25 02:24 | DIS ---
DATE OF ADMISSION: 03/23/2019 DATE OF DISCHARGE: 03/24/2019 PRIMARY CARE PROVIDER: Dr. Liu Bui. DISCHARGE DIAGNOSIS: Ascites. CONDITION OF PATIENT ON THE DAY OF DISCHARGE: Stable. I assessed Mr. Fung on the day of discharge. He denies any chest pain or shortness of breath. Vital signs are stable. S1 and S2 are heard, regular. Lungs are clear to auscultation bilaterally. POSTDISCHARGE FOLLOWUP: The patient is advised to follow up with primary care provider in 1 week's time. CONSULTATIONS DURING THIS HOSPITALIZATION: Gastroenterology, Dr. Melton. HOSPITAL COURSE: Mr. Fung is a pleasant 43-year-old gentleman, who was admitted to [facility] for recurrent ascites, malignant. He underwent paracentesis through Interventional Radiology Department. 8 L of yellow ascitic fluid was removed. At the time of this dictation, he has been ordered 2 units of 25% albumin. He will be discharged home following albumin infusion. Many thanks for allowing me to participate in your patient's care. Please feel free to contact me with any questions or concerns. DISCHARGE DESTINATION: Home. Job ID: [id number]
== END 2019-03-24 18:55 | disposition home or self-care (01) ==
LOC: ERS 12:49 → 2SW 22:01
PROVIDERS: ADMIT Internal Medicine; ATTEND Internal Medicine
PROC: 0W9G3ZZ Drainage of Peritoneal Cavity, Percutaneous Approach (ICD-10-PCS; principal; 2019-03-24)
DX: C18.9 Malignant neoplasm of colon, unspecified (principal); C78.7 Secondary malignant neoplasm of liver and intrahepatic bile duct; C78.6 Secondary malignant neoplasm of retroperitoneum and peritoneum; R18.0 Malignant ascites; D63.8 Anemia in other chronic diseases classified elsewhere; D72.829 Elevated white blood cell count, unspecified; E78.5 Hyperlipidemia, unspecified; F41.9 Anxiety disorder, unspecified; G47.30 Sleep apnea, unspecified; E66.9 Obesity, unspecified; Z68.42 Body mass index [BMI] 45.0-49.9, adult
CPT/HCPCS: 36415; 49083; 71046; 74177; 80048; 80053; 81003; 81015; 82150; 82550; 83690; 85025; 85610; 85730; 96360; 96361; 96365; 96375; G0378; P9047; Q9966; S0028

== ENCOUNTER 2019-03-29 10:09 | Day surgery (SDC) | payer BC ==
[2019-03-29] MEDS ORDERED: Sodium Bicarbonate 2.5 MEQ/5 ML VIAL ONE (10:51)
[2019-03-29] MEDS ORDERED: Albumin 25% 200 ML ONE (10:51)
[2019-03-29] MEDS ORDERED: Sodium Chloride 0.9% 10 ML ONE (10:56)
[2019-03-29 12:46] VITALS: BP 107/68; TEMP 97.7
--- NOTE | 2019-03-29 15:25 | ULT ---
US Paracentesis with Imaging History: Ascites Comparison: Paracentesis March 24, 2019 Findings: Patient was brought to the ultrasound suite. All questions were answered. Informed consent was obtained. Timeout performed. Patient's right lower quadrant was prepped and draped in normal sterile fashion. After adequate local anesthesia, using ultrasound guidance, a total of 8 L of serosanguineous fluid was removed. Patient tolerated the procedure well without complication. Impression: Technically successful ultrasound-guided paracentesis with removal of 8 L of serosanguine ous fluid.
== END 2019-03-29 12:20 | disposition home or self-care (01) ==
LOC: ULT 10:09
PROVIDERS: ATTEND Internal Medicine
PROC: 0W9G3ZZ Drainage of Peritoneal Cavity, Percutaneous Approach (ICD-10-PCS; principal; 2019-03-29)
DX: R18.8 Other ascites (principal); K74.60 Unspecified cirrhosis of liver; G47.33 Obstructive sleep apnea (adult) (pediatric); C18.9 Malignant neoplasm of colon, unspecified; Z99.89 Dependence on other enabling machines and devices; F41.9 Anxiety disorder, unspecified
CPT/HCPCS: 49083; P9047

== ENCOUNTER 2019-04-02 08:19 | Day surgery (SDC) | payer BC ==
[2019-04-02] MEDS ORDERED: Sodium Bicarbonate 2.5 MEQ/5 ML VIAL ONE (08:45)
[2019-04-02] MEDS ORDERED: Albumin 25% 200 ML ONE (08:45)
--- NOTE | 2019-04-02 10:35 | ULT ---
US Paracentesis with Imaging History: Ascites Comparison: Ultrasound guided paracentesis March 29, 2019 Findings: Patient was brought to the ultrasound suite. All questions were answered. Informed consent was obtained. Timeout performed. The patient's right lower quadrant was prepped and draped in normal sterile fashion. After adequate a nesthesia, a 5 Sami catheter was placed into the peritoneal space. A total of 8 L straw-colored fluid was removed. Impression: Technically successful ultrasound-guided paracentesis with removal of 8 L of straw-colore d fluid.
[2019-04-02 14:31] VITALS: BP 107/59; TEMP 97.5
== END 2019-04-02 10:40 | disposition home or self-care (01) ==
LOC: ULT 08:19
PROVIDERS: ATTEND Internal Medicine
PROC: 0W9G3ZZ Drainage of Peritoneal Cavity, Percutaneous Approach (ICD-10-PCS; principal; 2019-04-02)
PROC: BW40ZZZ Ultrasonography of Abdomen (ICD-10-PCS; principal; 2019-04-02)
DX: C18.9 Malignant neoplasm of colon, unspecified (principal); R18.0 Malignant ascites; F41.9 Anxiety disorder, unspecified; E78.5 Hyperlipidemia, unspecified; G47.33 Obstructive sleep apnea (adult) (pediatric); E66.9 Obesity, unspecified; Z99.89 Dependence on other enabling machines and devices
CPT/HCPCS: 49083; P9047